=== PATIENT | male | born 1930 | race Caucasian/White ===

== ENCOUNTER 2017-10-10 23:46 | Outpatient (CLI) | END 2017-10-10 23:47 | disposition short-term general hospital (02) | LOC: AMBL 23:46 | PROVIDERS: ATTEND Family Medicine | DX: R06.9 Unspecified abnormalities of breathing (principal); R53.1 Weakness; R19.7 Diarrhea, unspecified; I95.9 Hypotension, unspecified; R63.0 Anorexia; C80.1 Malignant (primary) neoplasm, unspecified; J44.9 Chronic obstructive pulmonary disease, unspecified ==